=== PATIENT | male | born 1995 | race Caucasian/White ===

== ENCOUNTER 2024-07-04 23:32 | Emergency (ER) | payer MEDICAID ==
[~2024-07-04] VITALS: Ht 165.1 cm; Wt 78.0 kg
[2024-07-04 23:43] VITALS: BP 119/79; PULSE 87; RESP 16; TEMP 98.1; O2SAT 97
[2024-07-05] MEDS ORDERED: LIDO700A15 TP (03:17)
[2024-07-05] MEDS ORDERED: NAPR-1176 MT (03:17)
[2024-07-05] MEDS: KETOROLAC 15MG/ML VIAL IM NR (04:03)
[2024-07-05] MEDS: KETOROLAC 15MG/ML VIAL IM ONE (04:04)
[2024-07-05] MEDS: ACETAMINOPHEN 500MG TABLET PO NR (06:27)
[2024-07-05] MEDS: ACETAMINOPHEN 500MG TABLET PO ONE (06:27)
== END 2024-07-05 04:45 | disposition home or self-care (01) ==
LOC: ER 23:32
DX: S82.142A Displaced bicondylar fracture of left tibia, initial encounter for closed fracture (principal); S82.141A Displaced bicondylar fracture of right tibia, initial encounter for closed fracture; S82.832A Other fracture of upper and lower end of left fibula, initial encounter for closed fracture; S82.831A Other fracture of upper and lower end of right fibula, initial encounter for closed fracture; Z79.1 Long term (current) use of non-steroidal anti-inflammatories (NSAID); V49.49XA Driver injured in collision with other motor vehicles in traffic accident, initial encounter; Y93.89 Activity, other specified; Y92.89 Other specified places as the place of occurrence of the external cause; Y99.8 Other external cause status
CPT/HCPCS: 29505; 99284; 73030; 73560; 96372; J1885; Z7610